=== PATIENT | male | born 1965 | race Caucasian/White ===

== ENCOUNTER → 2020-03-03 | Outpatient (CLI) | payer OTHER | LOC: RAD 08:40 | DX: M47.812 Spondylosis without myelopathy or radiculopathy, cervical region (principal); M25.78 Osteophyte, vertebrae; M48.02 Spinal stenosis, cervical region ==

== ENCOUNTER → 2020-03-11 | Outpatient (CLI) | payer OTHER ==
[~2020-03-11] MED LIST: COLACE100 MG PO; CYCLOBENZAPRINE10 MG PO; MIRALAX119 GM PO; MULTI VITAMIN1 EACH PO; NAPROSYN500 MG PO; ROBAXIN 750 MG750 MG PO
== END ==
LOC: LAB
PROVIDERS: ATTEND Student in an Organized Health Care Education/Training Program
DX: Z01.812 Encounter for preprocedural laboratory examination (principal); Z11.59 Encounter for screening for other viral diseases

== ENCOUNTER 2020-03-13 08:37 | Inpatient (IN) | payer OTHER ==
[2020-03-11 12:50] LABS: ABSOLUTE NEUTROPHILS 3.6 thou/uL (1.4-8.2); BASOPHILS 0.5 % (0.0-2.0); EOSINOPHILS 2.3 % (0.0-3.0); HEMATOCRIT 46.6 % (42.0-52.0); HEMOGLOBIN 15.9 gm/dL (14.0-18.0); LYMPHOCYTES 31.6 % (24.0-44.0); MCH 31.6 pg (26.0-34.0); MCHC 34.2 g/dL (28.0-37.0); MCV 92.3 fL (80.0-100.0); MONOCYTES 10.3 % (1.0-8.0); PLATELET COUNT 216 thou/uL (150-400); POLYS 55.3 % (36.0-66.0); RBC 5.05 mil/uL (4.50-6.00); RDW 13.1 % (10.5-14.5); WBC 6.6 thou/uL (4.0-11.0)
[2020-03-11 13:08] LABS: APTT 26.8 Seconds (24.5-32.8); PROTIME 9.9 Seconds (9.3-11.4)
[2020-03-11 13:15] LABS: ALBUMIN 4.3 g/dL (3.4-5.0); CALCIUM 9.4 mg/dL (8.5-10.1); CREATININE 1.1 mg/dL (0.7-1.3); POTASSIUM 4.2 mmol/L (3.5-5.1); TOTAL BILIRUBIN 0.3 mg/dL (0.2-1.0); TOTAL PROTEIN 7.1 g/dL (6.4-8.2)
[2020-03-11 13:34] LABS: URINE BILIRUBIN NEGATIVE (Negative); URINE BLOOD NEGATIVE (Negative); URINE CLARITY CLEAR; URINE COLOR YELLOW; URINE GLUCOSE-RANDOM* NEGATIVE (Negative); URINE KETONES NEGATIVE (Negative); URINE LEUKOCYTES-REFLEX TRACE (Negative); URINE NITRITE-REFLEX NEGATIVE (Negative); URINE PROTEIN (DIPSTICK) NEGATIVE (Negative); URINE SPECIFIC GRAVITY 1.015 (1.005-1.035); URINE UROBILINOGEN 0.2 E.U./dl (0.2-1.0)
--- NOTE | 2020-03-11 15:42 | EKG ---
[facility] [place] [address] ELECTROCARDIOGRAM REPORT Name: JIAN DOHERTY Room #: PRE [facility] [place] M.R.#: [id number] Admission: Attend Phys: Sunil Mauro MD Discharge: Date of : 67 Report #: [id number] THIS REPORT FOR: cc: Kale Talbert,Tom Boogie MD ~ THIS REPORT FOR: //name// [facility] Test Date: 2020-03-11 Test Time: 12:43:59 Pat Name: JIAN DOHERTY Department: Room: Gender: [employer]: NICOLE BOND : 1965 Requested By: Sunil Mauro Order Number: [id number] MD: Tom Ahumada Measurements Intervals [place] Rate: 79 P: 69 TX: 169 QRS: 24 QRSD: 89 T: 69 QT: 364 QTc: 418 Interpretive Statements Sinus rhythm Abnormal R-wave progression, early transition No previous ECG available for comparison Electronically Signed On 03-11-2020 15:42:05 CDT by Tom Ahumada [email or web address] <ELECTRONICALLY SIGNED> By: Tom Ahumada MD 03/11/20 1542 1243 1243 Tom Ahumada MD /EPI
[2020-03-12 07:09] LABS: GLYCOHEMOGLOBIN (HGB A1C) 5.6 % (4.8-5.6)
[~2020-03-13] VITALS: Ht 165.1 cm; Wt 73.5 kg
--- NOTE | ~2020-03-13 | O ---
[facility] [place] [address] OPERATIVE REPORT Name: JIAN DOHERTY Room #: 150-7 ADM IN M.R.#: [id number] Admission: 03/13/20 Attend Phys: Sunil Mauro MD Discharge: Date of : 67 Report #: [id number] THIS REPORT FOR: cc: Kale Talbert,Sunil Pritchard MD ~ CC: Sunil Talbert DATE OF SERVICE: 03/13/2020 PREPROCEDURAL DIAGNOSES: C4-C5, C5-C6 herniated nucleus pulposus with jztzktqk-op-arxyah spinal stenosis, radiculopathy, and neck pain. POSTROCEDURAL DIAGNOSES: C4-C5, C5-C6 herniated nucleus pulposus with lrgyflrw-af-bflpef spinal stenosis, radiculopathy, and neck pain. PROCEDURE: Cervical total disk replacement C4-C5, cervical total disk replacement C5-C6. Fluoroscopy requiring fluoroscopic exposure and surgeon interpretation. SURGEON: Sunil Mauro MD MECHANICAL SPECIALIST SURGEON: Anyi Jain PA-C ANESTHESIA: General via endotracheal tube. INDICATIONS: The patient has had intractable neck and arm pain. He has large herniations at C4-C5 and C5-C6. He is requesting we proceed with operative intervention. He understands the risks of surgery to be , DVT, pulmonary embolism, quadriplegia, loss of the use of the arms and legs, numbness, tingling, weakness affecting the upper extremities, trunk and lower extremities, the possibility of bleeding, bleeding requiring transfusion, attendant risks of AIDS and hepatitis infection, instability, the need for revision, prolonged hospital stay, dural leak, spinal headache, infection, failure of instrumentation, and again he requested we proceed. DESCRIPTION OF PROCEDURE: The patient was brought to the operating room and administered general anesthesia via endotracheal tube. Lower extremities were treated with BECCA hose and intermittent compression stockings. He was positioned on the radiolucent table in the supine position with a bump between the scapulae to afford scapular retraction and the neck in neutral position. Arms were carefully padded and tucked and taped to the sides. Hips and knees were flexed over 2 pillows and the heels were on gel. In this neck neutral position, the anterior aspect of the neck was defatted with alcohol and visualized under fluoroscopy for the first of multiple serial fluoroscopic evaluations of the [address] [address] OPERATIVE REPORT Name: JIAN DOHERTY Room #: 150-7 ADM IN .R.#: [id number] Admission: 03/13/20 Attend Phys: Sunil Mauro MD Discharge: Date of : 67 Report #: [id number] neck. We chose a skin fold most approximating the C4-C5 level on the left centered over the sternocleidomastoid. We then sterilely prepped and draped, infiltrated the skin with 0.5% Marcaine, 1:200,000 epinephrine, and sharp dissection was begun. I would also note the patient received 10 mL of Decadron and an appropriate antibiotic. He also had an esophageal stethoscope placed. Went to the patient and incised, we then undermined flaps and mobilized the medial border of the sternocleidomastoid. We split the platysma first in a combination in line with its fibers and at the anterior border of the sternocleidomastoid muscle. We then mobilized the sternocleidomastoid over the oblique strap muscles and middle cervical fascia. We then dissected until we encountered the carotid and then fashioned a standard anteromedial approach to the spine using Kittner dissection and Cloward handheld retractors. When we reached the first disk space, we used the Kittners to dissect the fibrofatty tissue off the anterior aspect of the spine. We mobilized the esophagus protecting it with a handheld Cloward medially, the carotid laterally, and inserted a bent spinal needle in the first disk space encountered. It proved to be the C4-C5 level. With the C4-C5 level chosen, we were able to then expose ricardo-distally at the C4-C5 and C5-C6 level. We then elevated the longus colli just off the vertebrae in order to insert the bladed retractor, The Godengo system was used and 37 mm blades were used. We inserted the self-retaining retractor. We inserted the distraction pins and performed an anterior annulectomy of C4-C5. With C4-C5 exposed and distracted and the annulotomy performed, we then performed a diskectomy using a pituitary and micro curettes back to the posterior longitudinal ligament. We encountered significant amounts of herniated disk material posterior to the vertebral body and this was all pulled forward with the micro curette under loupe magnification and headlight illumination. As we debulked this, we were eventually able to place a micro curette behind the spondylitic ridge of C5 and the spondylitic ridge of C5 was resected with a 2-mm Kerrison. We then resected the spondylitic ridge of C4 and performed medial half uncovertebral joint resections affecting a posterior neural foraminal decompression with 2-mm Kerrison. When the neural foramen probed completely free, we deemed that portion of the decompression complete. I did take down the posterior longitudinal ligament to the dura at both levels. There was nothing extending further back at the C4-C5 or C5-C6 level. The dura was visualized and it was found to move forward as the disk material was removed at both levels. There was no untoward event at either level. We then templated the appropriate sized prosthesis with a sizer and then inserted the template and tamped it back and it did show excellent fit and well centered on the midline on the AP and to the posterior margins of the disk posteriorly. It was removed, the fin cutter was next used and then the interspace was cleaned of any debris and the device M6 total disk replacement was inserted at the C4-C5 level. This was after the diskectomy was complete, the spondylitic ridge of C4 and C5 were removed and the posterior neuroforaminal decompression was complete, the device was now in place, we checked in AP and lateral fluoroscopy view and showed it to be in superb position, exactly at the desired depth and centered on the midline. We then removed the distraction pin from C4-C6. We distracted the C5-C6 disk [address] [address] OPERATIVE REPORT Name: JIAN DOHERTY Room #: 150-7 ADM IN M.R.#: [id number] Admission: 03/13/20 Attend Phys: Sunil Mauro MD Discharge: Date of : 67 Report #: [id number] space. We performed a diskectomy after centering the blades and the longus colli at the C5-C6 level. The dissection included pituitary, resection of the disk back to the posterior longitudinal ligament. Spondylitic ridge of C5 and C6 now removed the medial half of the uncovertebral joint effected posterior neuroforaminal decompressions, and with the neuroforaminal decompression was complete, we then took down the posterior longitudinal ligament exposing the anterior dura at this level. The anterior dura taken down visualized noting that the posterior longitudinal ligament was completely resected and the neural foramen probed completely free. We templated the medium long prosthesis. We inserted the template and it was tamped back to appropriate levels and judged to be in excellent position both in the AP and lateral planes. This was all done under serial repeat fluoroscopic visualization. Total fluoroscopic time for the case was less than 20 minutes. We then removed the template, inserted the fin cutter, drilled it to appropriate depth all under continuous fluoroscopy. We then removed the fin cutter, inserted the device and again seated it under fluoroscopy as it neared the posterior cortex of the vertebrae. With the prosthesis in place, we then removed the wire inserter. We removed the self-retaining retractor, removed the distraction pins and checked in AP and lateral fluoroscopy view and both prostheses were inserted at the appropriate level, centered on the midline and at desired depth. It appeared excellent with respect to placement. There were no untoward events. The patient was physiologically stable throughout. The final blood loss was 30 mL. The patient's wound was dry. It was irrigated with a liter of antibiotic-containing solution, reinspected, and found to be completely dry. Platysma was reapproximated with 3-0 Vicryl, subcutaneous with 3-0 Vicryl, and the skin with a running subcuticular 3-0 Vicryl, dressed with benzoin, Steri-Strips, Xeroform sterile dressings, sponges, and a bioclusive. The patient was then placed in a soft collar and being transported to the recovery room for closer neurovascular observation and discharge for wound, stable to continue prophylactic neurologic exams and neurovascular checks and continued prophylactic antibiotics. By: 1351 [id number] Sunil Mauro MD /nt
[~2020-03-13 08:37] MED LIST changes: -COLACE100 MG PO; -MIRALAX119 GM PO; -ROBAXIN 750 MG750 MG PO
[2020-03-13 09:05] VITALS: BP 137/84
[2020-03-13 15:55] VITALS: BP 167/94
--- NOTE | 2020-03-13 16:57 | NUR ---
PATIENT ADMITTED FROM OR, PROCEDURE ANTERIOR CERVICAL TOTAL DISK REPLACMENT, CERVICAL COLLAR IN PLACE, PATIENT ALERT AND ORIENTED X 4. PATIENT HAS MILD PAIN 2/10. PATIENT HAS LEFT WRIST IV IN PLACE. AT BEDSIDE. O2 AT 2 LITERS/NC IN PLACE, SATS ABOVE 90. B/P SLIGHTLY ELEVATED. DR HEATH VISITED WITH THE PATIENT, REPORT GIVEN TO SHERON/JORDYN. ADMISSION COMPLETED.
[2020-03-13 19:14] VITALS: BP 158/95
--- NOTE | 2020-03-13 23:30 | NUR ---
PT ASSESSED AT START OF SHIFT 1900. A&OX4. STATED PAIN CONTROLLED WITH OXYCODONE / AND DOESN'T WANT THE HAND NAILER PUMP. THIS NURSE PROVIDED EDUCATION PT VERBALIZIED UNDERSTANDING. PT REFUSED. PAIN MANAGED WITH OXYCODONE. IV INTACT AND FLUIDS STARTED. FALL PREC IN PLACE, CALL LIGHT IN REACH. CALLED PROVIDER AND OFFICEX2 TO INFORM ABOUT HAND NAILER NO ANSWER WILL TRY AGIN. CERVICAL COLAR IN PLACE WILL CONT TO MONITOR
[2020-03-14 00:33] VITALS: BP 155/93
[2020-03-14 04:06] VITALS: BP 125/79
[2020-03-14 06:15] LABS: ABSOLUTE NEUTROPHILS 8.5 thou/uL (1.4-8.2); BASOPHILS 0.3 % (0.0-2.0); HEMATOCRIT 44.6 % (42.0-52.0); LYMPHOCYTES 12.7 % (24.0-44.0); MCH 31.5 pg (26.0-34.0); MCHC 33.7 g/dL (28.0-37.0); MCV 93.3 fL (80.0-100.0); MONOCYTES 10.5 % (1.0-8.0); PLATELET COUNT 202 thou/uL (150-400); POLYS 76.5 % (36.0-66.0); RBC 4.78 mil/uL (4.50-6.00); RDW 13.5 % (10.5-14.5); WBC 11.2 thou/uL (4.0-11.0)
[2020-03-14 06:35] LABS: CALCIUM 8.5 mg/dL (8.5-10.1); CREATININE 1.2 mg/dL (0.7-1.3); POTASSIUM 4.3 mmol/L (3.5-5.1)
[2020-03-14 08:19] VITALS: BP 141/89
--- NOTE | 2020-03-14 09:32 | NUR ---
ASSESSMENT: CM REVIEWED CHART AND SPOKE WITH PATIENT AT THE BEDSIDE. PT IS ALERT AND ORIENTED X4. PT REPORTS LIVING AT HOME WITH HIS . PT REPORTS THAT HE HAS ABOUT 15 STEPS AT HOME WITH HANDRAILS. PT REPORTS AMBULATING INDEPENDENTLY AND IS INDEPENDENT WITH ADLS. PT REPORTS HE HAS NOT HAD HH IN THE PAST NOR BEEN TO THE SNF. PT REPORTS HE FEELS HIS PHYSICIAN WANTS HIM TO HAVE HH AT DISCHARGE SOMEONE FROM A HOME HEALTH CALLED HIM HE THINKS. CM ASKED WHAT COMPANY AND PT IS NOT SURE. PT PROVIDED CM WITH A NUMBER AND CM IS AWAITING A CALL BACK AT THIS TIME. CM WILL CONTINUE TO FOLLOW.
[2020-03-14 09:37] VITALS: BP 125/79
--- NOTE | 2020-03-14 11:12 | NUR ---
Assumed care of pt. at 0700 pt. is calm and cooperative. Pt. was able to walk on own to the restroom and did several laps with PT. Patient is eager for discharge.
[2020-03-14] MEDS ORDERED: COLACE100 MG PO ×2 (13:40)
[2020-03-14] MEDS ORDERED: MIRALAX119 GM PO ×2 (13:40)
[2020-03-14] MEDS ORDERED: ROBAXIN 750 MG750 MG PO ×2 (13:40)
[2020-03-14 13:53] VITALS: BP 125/79
--- NOTE | 2020-03-17 13:24 | NUR ---
CM RECEIVED A CALL FROM PATIENT STATING HOME HEALTH HAS NOT BEEN OUT AND HE IS HAVING AN ISSUE WITH [facility] AND [facility]. CM REACHED OUT TO LIASON AT [facility] TO GATHER MORE INFO. CM SPOKE [facility] LIASON [phone] WHO REPORTS THEY ARE JUST WAITING ON PRIOR AUTH FROM [facility] SOMETIMES IT TAKES 72 HOURS. SHE REPORTS HER TEAM IS WORKING ON IT. CM REACHED OUT TO PATIENT AND NOTIFY THEM. REPORTS SHE HAS BEEN ON THE PHONE AND STATES SHE SPOKE WITH SOMEONE WHO NEEDED DC ORDERS. JINA THEN REACHED OUT AGAIN TO [facility] LIASON TO CLARIFY ON TUESDAY THEY STATED THEY RECEIVED THE INFO AND DID NOT NEED ANY FURTHER INFORMATION. SHE STATES TO GO AHEAD AND SEND OVER AGAIN. CM FAXED D.C ORDERS TO [facility]. SHE STATES SHE WILL FOLLOW UP WITH THE PATIENT AND HIS .
== END 2020-03-14 13:30 | disposition home health service (06) | DRG 518 ==
LOC: 4S 08:37 → TBA 08:37 → EDSTATUS 11:06 → PRE 11:10 → OR 11:24 → 4S 15:12 → PRE 16:20 → 4S 03-14 13:30
PROC: 0RR30JZ Replacement of Cervical Vertebral Disc with Synthetic Substitute, Open Approach (ICD-10-PCS; principal; 2020-03-13)
DX: M50.11 Cervical disc disorder with radiculopathy, high cervical region (principal); M48.02 Spinal stenosis, cervical region; I10 Essential (primary) hypertension; Z79.899 Other long term (current) drug therapy
CPT/HCPCS: 10102; 50010; 50101; 50402; 51725; 56528; 58232; 62110; 62900; 70005

== ENCOUNTER → 2020-03-28 | Outpatient (CLI) | payer OTHER ==
[~2020-03-28] MED LIST changes: +COLACE100 MG PO; +MIRALAX119 GM PO; +ROBAXIN 750 MG750 MG PO
== END ==
LOC: RAD 08:47
DX: Z98.890 Other specified postprocedural states (principal)

== ENCOUNTER → 2020-04-28 | Outpatient (CLI) | payer OTHER | LOC: RAD 08:31 | DX: M47.812 Spondylosis without myelopathy or radiculopathy, cervical region (principal); M40.50 Lordosis, unspecified, site unspecified ==